=== PATIENT | female | born 1990 | race Two or more races ===

== ENCOUNTER → 2020-07-13 | Outpatient (CLI) | payer MEDICAID | END | disposition home or self-care (01) | LOC: Rad HDHVI 08:56 | PROVIDERS: ATTEND Internal Medicine Cardiovascular Disease | DX: I47.9 Paroxysmal tachycardia, unspecified (principal); R00.2 Palpitations | CPT/HCPCS: 93306 ==

== ENCOUNTER → 2020-07-20 | Outpatient (CLI) | payer MEDICAID ==
[~2020-07-20] VITALS: Ht 167.6 cm; Wt 127.0 kg
== END | disposition home or self-care (01) ==
LOC: Rad HDHVI 08:40
PROVIDERS: ATTEND Internal Medicine Cardiovascular Disease
DX: R06.02 Shortness of breath (principal)
CPT/HCPCS: 78452; 93017; 96374; A9500